=== PATIENT | female | born 1975 | race Hispanic/Latino ===

== ENCOUNTER → 2018-12-14 | Outpatient (CLI) | payer OTHER ==
--- NOTE | 2018-12-15 08:48 | Diagnostic Imaging Report ---
#[id number] - MGDXBIL #BILATERAL DIGITAL DIAGNOSTIC MAMMOGRAM WITH CAD: 12/14/2018 No prior exams were available for comparison. Current study contains 6 films. The tissue of both breasts is heterogeneously dense. This may lower the sensitivity of mammography. Current study was also evaluated with a Computer Aided Detection (CAD) system. No significant masses, calcifications, or other findings are seen in either breast. A palpable mass marker is noted in the upper inner aspect. An ultrasound exam will be performed in this area. IMPRESSION: BENIGN There is no mammographic evidence of malignancy. A 1 year screening mammogram is recommended. The patient will be notified by letter of the results. Ruddy Gonsalez Jr., D.O. cw/:12/14/2018 16:32:58 Direct Marketing Specialist: Carline JEFFERS)(M), [facility] letter sent: Normal Exam Mammogram BI-RADS: 2 Benign
--- NOTE | 2018-12-15 08:48 | Diagnostic Imaging Report ---
#[id number] - USBRELIMLT ULTRASOUND OF THE LEFT BREAST : 12/14/2018 Comparison is made to exam dated: 12/14/2018 mammogram - [facility] [place]. Color flow and real-time ultrasound were performed on the left breast from 12-3 o'clock. -At 2 o'clock 1 cm from the nipple is a 7 x 5 x 7 mm benign cyst. -At 3 o'clock 1 cm from the nipple is a 4 x 3 x 3 mm benign cyst. -At 12 o'clock near the nipple is a cluster of cysts with composite measurement of 5 x 5 x 6 mm. -No solid mass is seen. IMPRESSION: BENIGN There is no sonographic evidence of malignancy. A 1 year screening mammogram is recommended. Ruddy Gonsalez Jr., D.O. cw/:12/14/2018 16:52:42 Teletype Or [place] Keyboard Operator: Devyn Simmons RDMS, [facility] [place] letter sent: Normal Exam Ultrasound BI-RADS: 2 Benign
== END ==
LOC: MAMMO 15:09
PROVIDERS: ATTEND Family Medicine
DX: N60.12 Diffuse cystic mastopathy of left breast (principal)
CPT/HCPCS: 77066

== ENCOUNTER → 2020-03-28 | Outpatient (CLI) | payer OTHER | LOC: MAMMO 13:58 | PROVIDERS: ATTEND Family Medicine | DX: Z12.31 Encounter for screening mammogram for malignant neoplasm of breast (principal) | CPT/HCPCS: 77067 ==